=== PATIENT | female | born 1995 | race Caucasian/White ===

== ENCOUNTER → 2018-02-03 | Outpatient (REF) | payer BC ==
[~2018-02-03] MED LIST: BIRTH CONTROL
[2018-02-03 18:22] LABS: PLATELET COUNT, AUTOMATED 285 K/uL (150-450)
== END ==
PROVIDERS: ATTEND Nurse Practitioner Family
DX: M54.5 Low back pain (principal)
CPT/HCPCS: 82040; 82247; 82310; 82374; 82435; 82565; 82947; 84075; 84132; 84155; 84295; 84450; 84460; 84484; 84520; 85025; 85379